=== PATIENT | female | born 1995 | race Caucasian/White ===

== ENCOUNTER 2020-06-15 20:58 | Emergency (ER) | payer BC, SELFPAY ==
--- NOTE | ~2020-06-15 | CT_ITS ---
EXAMINATION: CT abdomen pelvis w con DATE: 06/15/2020 22:11 INDICATION: Right lower abdominal pain TECHNIQUE: Computed tomography (CT) of the abdomen and pelvis was performed with 100 cc Omnipaque 350 intravenous contrast. The dose-length product was 236.77 mGy-cm. Automated exposure control and iter ative reconstruction technique were employed. COMPARISON: None. FINDINGS: Lung bases are unremarkable. Heart size normal. No significant pleural or pericardial effus ion. No significant vascular abnormality. There is heterogeneous enhancement of the liver, likely secondary to timing of contrast bolus. The sp burton, pancreas, adrenal glands and kidneys are unremarkable. Gallbladder is contracted. No significan t lymphadenopathy. Nonobstructive bowel gas pattern. The appendix is not positively visualized. Ther e is no pericecal inflammatory change to suggest appendicitis. There is a menstruation cup in the vagina. There is free fluid in the pelvis. No acute osseous abnorm ality. IMPRESSION: 1. The appendix is not positively visualized. There is no pericecal inflammatory change to suggest a ppendicitis. 2: Moderate free fluid in the pelvis, likely physiologic. Reviewed, dictated and finalized at location A. IMPRESSION: 1. The appendix is not positively visualized. There is no pericecal inflammato ry change to suggest appendicitis. 2: Moderate free fluid in the pelvis, likely physiologic.
[2020-06-15 21:02] VITALS: BP 129/55; PULSE 59; RESP 16; TEMP 36.1; O2SAT 100
--- NOTE | 2020-06-15 21:14 | ED.ABDPAIN ---
HPI - Abdominal Pain General Chief Complaint: Abdominal Pain Stated Complaint: abd PAIN Time Seen by Provider: 06/15/20 21:10 Source: patient Mode of arrival: ambulatory Limitations: no limitations History of Present Illness HPI narrative: This patient is 24 year old female who presents for evaluation of right lower abdominal pain. She developed pain last night and she describes the pain has intermittent sharp, stabbing pain. This pain appears to be worse with bending over. She states she has not taken anything for pain . Her pain is rated 5/10. She states she is currently on her menstrual cycle but this pain seems different than menstrual cramps. Review of Systems Review of Systems: All systems reviewed & are unremarkable except as noted in HPI and below Constitutional: Constitutional: Denies chills and Denies fever(s) Gastrointestinal: Gastrointestinal: Reports abdominal pain, Denies diarrhea, Reports nausea and Denies vomiting Genitourinary: Genitourinary: Denies hematuria, Denies nocturia and Denies flank pain Musculoskeletal: Musculoskeletal: Denies back pain [facility] Past Medical History Medical History (Updated 06/16/20 @ 00:00 by Daniel Schulz) Patient denies medical problems Surgical History Surgical History (Updated 06/15/20 @ 21:17 by Kristi Colon MD) No significant past surgical history Social History Social History (Updated 06/15/20 @ 21:17 by Kristi Colon MD) Smoking status: Never smoker Exam Const: General: alert Nutritional Appearance: thin Orientation/consciousness: patient oriented x3 HENMT: Face and sinus: face symmetric Teeth and gingiva: dentition normal Throat: uvula midline Eyes: EOM: EOMs intact bilaterally Neck: Neck: normal visual inspection Chest: Chest palpation & inspection: normal inspection of the chest Resp: Effort & Inspection: normal respiratory effort and no retractions Auscultation: clear to auscultation bilaterally GI: GI Palp: Yes Soft to palpation, No Tenderness to palpation present (GI), No Guarding due to palpation present (GI), No Rigid due to palpation and No Hernia present Skin: General skin exam: normal color Rashes: no rashes Neuro: General: patient oriented x3 and moves all extremities Course Reevaluation(s) Reevaluation #1: I discussed with patient that CT shows FF likely due to menstrual cycle. No sign of appendicitis. She has no fever or leukocytosis. She has no abdominal tenderness either so I think it is unlikely appendicitis or ovarian torsion. I offered ultrasound of pelvis but patient declined and she states her pain was not that severe. Date: 06/15/20 Time: 22:56 Vital Signs Vital signs: Vital Signs Temperature 96.9 F L 06/15/20 21:02 Pulse Rate 59 L 06/15/20 21:02 Respiratory Rate 16 06/15/20 21:02 Blood Pressure 129/55 L 06/15/20 21:02 Pulse Oximetry 100 06/15/20 21:02 Temperature 96.9 F L 06/15/20 21:02 Pulse Rate 46 L 06/15/20 23:00 Respiratory Rate 15 06/15/20 23:00 Blood Pressure 96/71 L 06/15/20 23:01 Pulse Oximetry 99 06/15/20 23:02 MDM - Abdominal Pain Lab Data Attestation: I reviewed the patient's lab results. Result diagrams: 06/15/20 21:15 06/15/20 21:15 Labs: Lab Results 06/15/20 06/15/20 06/15/20 Range/Units 21:15 21:15 21:19 WBC 7.8 (4.5-10.0) K/mm3 RBC 4.39 (4.2-5.4) M/mm3 Hgb 14.1 (12.0-15.0) g/dL Hct 42.4 (37.0-47.0) % MCV 96.6 (80-100) fl MCH 32.1 (26-34) pg MCHC 33.3 (32-36) g/dl RDW 13.8 (11.5-14.5) % Plt Count 271 (150-375) k/mm3 MPV 9.2 (7.4-10.4) fl Immature Gran % (Auto) 0.1 (0-0.5) % Neut % (Auto) 65.2 (45.5-73.1) % Lymph % (Auto) 22.9 (18.3-44.2) % [place] % (Auto) 9.7 H (2.6-8.5) % Eos % (Auto) 1.3 (0-4.4) % Baso % (Auto) 0.8 (0.2-1.2) % Lymph # (Auto) 1.78 (0.9-3.2) K/mm3 [place] # (Auto) 0.8 H (0.1-0.6) K/mm3 Eos
[2020-06-15 21:21] LABS: Basophils Absolute Auto 0.1 K/mm3 (0.0-0.1); Basophils Percent Auto 0.8 % (0.2-1.2); Eosinophils Absolute Auto 0.1 K/mm3 (0-0.3); Eosinophils Percent Auto 1.3 % (0-4.4); Hematocrit 42.4 % (37.0-47.0); Hemoglobin 14.1 g/dL (12.0-15.0); Immature Granulocyte Absolute 0.01 K/mm3 (0.00-0.031); Immature Granulocyte Percent A 0.1 % (0-0.5); Lymphocytes Absolute Auto 1.78 K/mm3 (0.9-3.2); Lymphocytes Percent Auto 22.9 % (18.3-44.2); Mean Corpuscular HGB Conc 33.3 g/dl (32-36); Mean Corpuscular Hemoglobin 32.1 pg (26-34); Mean Corpuscular Volume 96.6 fl (80-100); Mean Platelet Volume 9.2 fl (7.4-10.4); Monocytes Absolute Auto 0.8 K/mm3 (0.1-0.6); Monocytes Percent Auto 9.7 % (2.6-8.5); Neutrophils Absolute Auto 5.1 K/mm3 (1.3-6.7); Neutrophils Percent Auto 65.2 % (45.5-73.1); Platelet Count Result 271 k/mm3 (150-375); Red Blood Count 4.39 M/mm3 (4.2-5.4); Red Cell Distribution Width 13.8 % (11.5-14.5); White Blood Count 7.8 K/mm3 (4.5-10.0)
[2020-06-15 21:30] LABS: Add Urine Microscopic? YES; Appearance Urine Clear (Clear); Bacteria Urine Trace /hpf; Bilirubin Urine Negative (Negative); Blood Urine 2+ (Negative); Color Urine Colorless (Yellow); Glucose Urine UA Negative (Negative); Ketones Urine Negative (Negative); Leukocyte Esterase Ur Trace LEU/UL (Negative); Mucus Urine Rare /lpf; Nitrate Urine Negative (Negative); Protein Urine Negative (Negative); RBC Urine 0-2 /hpf (0-2); Squamous Epithelial Cell Urine Rare /hpf (Few); Urobilinogen Urine Negative mg/dL (<2.0)
[2020-06-15 21:32] LABS: Alanine Aminotransferase 21 U/L (4-35); Albumin Level 4.7 g/dL (3.5-5.1); Alkaline Phosphatase 57 U/L (38-126); Anion Gap 8 mmol/L (8-16); Aspartate Amino Transferase 37 U/L (14-36); Bilirubin,Total 0.5 mg/dL (0.2-1.3); Blood Urea Nitrogen 10 mg/dL (7-17); Calcium 9.9 mg/dL (8.4-10.2); Carbon Dioxide 34 mmol/L (22-30); Chloride 100 mmol/L (98-107); Estimated CRCL calculation 109 ml/min; Estimated Glomerular Filt Rate > 60; Glucose 107 mg/dL (65-105); Lipase 202 U/L (23-300); Potassium 3.4 mmol/L (3.4-5.0); Sodium 142 mmol/L (137-145)
[2020-06-15 21:42] LABS: Specific Grav Ur 1.004 (1.001-1.035)
[2020-06-15 23:00] VITALS: BP 96/71; PULSE 46; RESP 15; O2SAT 99
[2020-06-15 23:01] VITALS: BP 96/71; O2SAT 100
[2020-06-15 23:02] VITALS: O2SAT 99
== END 2020-06-15 23:00 | disposition home or self-care (01) ==
PROVIDERS: Emergency Medicine; Emergency Provider General Practice
DX: R10.31 Right lower quadrant pain (principal)
CPT/HCPCS: 36415; 74177; 80053; 81001; 81025; 83690; 85025; 87086; 99284; Q9967